=== PATIENT | female | born 1990 | race Two or more races ===

== ENCOUNTER 2024-12-01 12:48 | Emergency (ER) | payer MEDICAID, SELFPAY ==
[2024-12-01 13:16] VITALS: BP 106/68; PULSE 94; RESP 18; TEMP 36.5; O2SAT 98; BMI 24.2
--- NOTE | 2024-12-01 13:24 | EDNOTE_ITS ---
ED Neck Injury Pain RME/HPI General Chief Complaint: Neck Pain/Injury Stated Complaint: CAN'T MOVE NECK INTO SHOULDERS ON L), STARTED 11/29 Time Seen by Provider: 12/01/24 13:00 Arrival date/time: 12/01/24 12:48 34 year old female present to emergency room with c/o of neck pain that radiated to left shoulder for 2 days. pt denies any trauma or injury. prior history of similar pain but sx resolved. patient taken IBU with minimal improvement LOCATION: Neck SEVERITY: Symptoms are described as being severe with limitations on activities of daily living CONTEXT: The patient is unable to identify any inciting events. DURATION/TIMING: The symptoms started approximately 2 days ago and have been constant since and have been progressive getting worse. ASSOCIATED SYMPTOMS: The patient is unable to identify any other associated symptoms. MODIFYING FACTORS: The patient is unable to identify any alleviating or aggravating symptoms. PERTINENT ROS: no fevers, no cough, headache, vision changes, fatigue, no pleuritic pain, no ripping or tearing sensations, denies any lower extremity edema and no unilateral swelling, no chest pain/shortness of breath no nausea,vomiting, diarrhea, no dizziness/headache no rash no loc/syncope episode no abd/back pain no dsyuria,urgency,frequency REVIEW OF SYSTEMS: See History of Present Illness - with the exception of those mentioned in the history of present illness, all other systems reviewed and reported as negative GENERAL: In general the patient is awake, interactive, in an emergency department gurney. HEAD/EYES/EARS/NOSE/THROAT: normo-cephalic, atraumatic, mucus membranes are moist, anicteric, palpebral conjunctiva is pink, trachea is midline. CARDIOVASCULAR: regular rate and regular rhythm, no murmurs, heart sounds are not distant, strong pulses in all four extremities that are equal and symmetric bilateral upper and lower extremities, normal capillary refill. CHEST/PULMONARY: normal chest rise and fall, good air movement, clear to auscultation bilaterally, normal inspiratory to expiratory ratios without evidence of respiratory distress. NECK: + left paraspinal tenderness, decrease range of motion due to pain, no sign of infection No midline no step off ROM/Strenght intact No Kernig and bruzinski sign. No trauma ABDOMEN: soft, not tender, no masses appreciated BACK: normal range of motion without pain. NEUROLOGICAL: cranio-facial features are symmetric, moves all four extremities equally without obvious limitations or weakness. EXTREMITY: no tenderness to palpation over the long bones or large joints of the bilateral upper and lower extremities, no joint swelling, no joint erythema, no signs of trauma, no unilateral leg swelling and no peripheral edema. SKIN: warm, dry, well-perfused, no jaundice, no rash, no telangiectasias or petechia. PSYCH: calm, cooperative, no evidence of psychosis or agitation Related Data Previous Rx's ?Medication ?Instructions ?Recorded ondansetron 4 mg disintegrating 4 mg PO Q8H PRN nausea and 05/13/23 tablet vomiting #30 tabs diazepam 5 mg tablet (Valium) 5 mg PO BID PRN muscle s pasm #7 12/01/24 tabs lidocaine 4 % topical patch 1 patch topical QDAY PRN p ain #15 12/01/24 ea naproxen 500 mg tablet 500 mg PO BID PRN pain #30 t abs 12/01/24 Allergies Allergy/AdvReac Type Severity Reaction Status Date / Time No Known Allergies Allergy Verified 12/01/24 12:53 Course Course Course Narrative: Patient presenting with neck pain/spasm for 2 days .? Given lack of physical exam findings including no spinous process TTP, no neurosensory/motor deficits, deferred cervical imaging at this time.? ?The patient did not have any urinary incontinence, bowel incontinence, saddle anesthesia, fever,? that would advanced warrant imaging. No radicular pain or focal neurologic finding to suggest disk injury or nerve impingement. Patient has reproducible pain with range of motion. Pain was consistent with a muscle strain or sprain.? Advised patient on cold application to the affected area for 20-30 minutes every few hours for 1-2 days and then the warm application to the affected area for 20-30 minutes every few hours until resolution of symptoms. (do not sleep on the heating pad). Use over the counter pain medication. Cyclobenzaprine (Flexiril) 10mg orally at night for muscle relaxation; do not drive or operate machinery when on this medication as it may cause drowsiness.? Go to ER if progressive symptoms, including worsening pain not controlled by medications, numbness, lower extremity weakness, urinary or fecal retention or incontinence, saddle anesthesia or unintended weight loss, significant fevers, or other concerns.? At this time, however, he is stable for discharge. Quality Measures none Orders Category Date Time Status Acetaminophen Tab [Tylenol ES Tab] Med 12/01/24 13:23 Discontinued 1,000 mg PO X1 ONE Diazepam [Valium] Med 12/01/24 13:23 Discontinued 5 mg PO X1 ONE Ketorolac Inj [Toradol Inj] Med 12/01/24 13:23 Discontinued 30 mg IM X1 ONE Lidocaine 5% Patch Med 12/01/24 13:23 Discontinued 1 patch TOP X1 ONE Vital Signs Vital signs: Vital Signs Temperature 97.7 F 12/01/24 13:16 Pulse Rate 94 12/01/24 13:16 Respiratory Rate 18 12/01/24 13:16 Blood Pressure 106/68 12/01/24 13:16 Pulse Oximetry (%) 98 12/01/24 13:16 Oxygen Delivery Method Room Air 12/01/24 13:16 Neck Pain Patient data External records reviewed:: [facility] previous records Clinical information provided by:: patient Social determinants that could affect healthcare access:: none Patient has the following chronic illnesses:: n/a How is presenting disease/condition affected by chronic disease/condition?: no chronic disease Evaluation data The following diagnostics were reviewed and interpreted by me:: other (specify) (n/a ) Lab and/or radiology exams considered but not ordered:: n/a Interpretation Summary: n/a Medications / Prescriptions Medications or Prescriptions considered but not ordered:: n/a Medication administrations:: Medication Administration History Discontinued Medications Acetaminophen (Acetaminophen 500 Mg Tablet) 1,000 mg PO X1 ONE Stop: 12/01/24 13:24 Last Admin: 12/01/24 13:51 Dose: 1,000 mg Documented By: OA Diazepam (Diazepam 5 Mg Tablet) 5 mg PO X1 ONE Stop: 12/01/24 13:24 Last Admin: 12/01/24 13:50 Dose: 5 mg Documented By: OA Ketorolac Tromethamine (Ketorolac Inj 60 Mg/2 Ml Vial) 30 mg IM X1 ONE Stop: 12/01/24 13:24 Last Admin: 12/01/24 13:50 Dose: 30 mg Documented By: OA Lidocaine (Lidocaine 5% 1 Patch) 1 patch TOP X1 ONE Stop: 12/01/24 13:24 Last Admin: 12/01/24 13:50 Dose: 1 patch Documented By: OA as stated above Consultations Consultation(s) initiated? (list below): No Diagnosis Neck Differential Diagnosis: disc disorder of cervical region, whiplash injury to neck, cervical radiculopathy, torticollis and strain of neck muscle Most likely diagnosis given after review of the tests above:: torticollis Admission Indicated Admission indicated?: not indicated Admission Request Was there a request for admission?: No Disposition Plan Disposition Plan: Discharge Discharge Attestation Discharge Attestation: The patient and all family members were given an opportunity to ask questions and understood the discharge instructions. Discharge instructions specifically effects, indications for sooner follow up or return to the emergency department, and the expected course of current diagnosis. Patient condition: Stable Discharge Plan Plan Patient Disposition: HOME (Self Care) Health Concerns: Follow up with PMD as directed Return to ED if symptoms worsen Prescriptions/Referrals Prescriptions/Med Rec: New lidocaine 4 % adhesive patch,medicated 1 patch topical QDAY PRN (Reason: pain) Qty: 15 0RF diazepam [Valium] 5 mg tablet 5 mg PO BID PRN (Reason: muscle spasm) Qty: 7 0RF naproxen 500 mg tablet 500 mg PO BID PRN (Reason: pain) Qty: 30 0RF No Action ondansetron 4 mg tablet,disintegrating 4 mg PO Q8H PRN (Reason: nausea and vomiting) Qty: 30 0RF Referrals: Marga Light FNP [Primary Care Provider] - In 1 week Problem List Clinical Impression: Torticollis Patient/Caregiver Discharge Instructions Education Materials: Torticollis (Wry Neck) Print Language: Bel[place]ian Stand Alone Forms: Nicol Award Info., Patient Portal Info Letter
[2024-12-01] MEDS: KETOROLAC INJ 60 MG/2 ML VIAL 30 MG IM (13:50)
[2024-12-01] MEDS: LIDOCAINE 5% 1 PATCH TOP (13:50)
[2024-12-01] MEDS: DIAZEPAM 5 MG TABLET PO (13:50)
[2024-12-01] MEDS: ACETAMINOPHEN 500 MG TABLET 1000 MG PO (13:51)
== END 2024-12-01 15:31 | disposition home or self-care (01) ==
PROVIDERS: Emergency Provider Emergency Medicine; PCP Nurse Practitioner Family
DX: M43.6 Torticollis (principal)
CPT/HCPCS: 96372; 99283; J1885; J3490; A9270

== ENCOUNTER 2025-03-19 04:00 | Emergency (ER) | payer MEDICAID, SELFPAY ==
[2025-03-19 04:01] VITALS: BP 123/77; PULSE 86; RESP 18; TEMP 36.6; O2SAT 100; BMI 28.9
--- NOTE | 2025-03-19 04:39 | PD.EDRME ---
Rapid Medical Screening Exam [facility] Arrival date/time: 03/19/25 04:00 34F with history of anxiety presents to ED with panic attack including heart palps and full-body numbness. Patient doesn't want to wait to see if she feels better with Valium since she has Xanax at home. Patient also doesn't want to wait for discharge paperwork. Chief Complaint: Chest Pain Vital signs: Vital Signs Temperature 97.8 F 03/19/25 04:01 Pulse Rate 86 03/19/25 04:01 Respiratory Rate 18 03/19/25 04:01 Blood Pressure 123/77 03/19/25 04:01 Pulse Oximetry (%) 100 03/19/25 04:01 Oxygen Delivery Method Room Air 03/19/25 04:01
--- NOTE | 2025-03-19 04:44 | PD.EDADDENDU ---
Emergency Room Addendum Addendum Narrative: I was told the patient eloped. Ronald Massey MD
== END 2025-03-19 05:02 | disposition left against medical advice (07) ==
LOC: SERX 04:40
PROVIDERS: Emergency Provider Emergency Medicine
DX: R07.9 Chest pain, unspecified (principal); R20.0 Anesthesia of skin; R00.2 Palpitations; Z53.29 Procedure and treatment not carried out because of patient's decision for other reasons
CPT/HCPCS: 93005; 99281